=== PATIENT | female | born 1975 ===

== ENCOUNTER → 2024-02-15 11:27 | Outpatient (CLI) | payer OTHER ==
[2024-02-15 12:38] LABS: HEMATOCRIT 39.6 % (36.0-45.00); HEMOGLOBIN 13.5 g/dL (12.0-15.00); MEAN CELL VOLUME 94.7 fL (80.00-100.00); MEAN CORPUSCULAR HEMOGLOBIN 32.3 pg (27.00-32.0); MEAN CORPUSCULAR HGB CONC 34.1 g/dl (32.0-36.0); PLATELET COUNT 186 K/uL (150-450); RED BLOOD COUNT 4.18 M/uL (4.00-6.00); RED CELL DISTRIBUTION WIDTH 12.6 % (11.5-14.5)
[2024-02-15 14:42] LABS: % SATURACION 32.2 % (15-50); ALBUMIN 3.8 gm/dL (3.4-5.0); BILIRUBIN TOTAL 1.54 mg/dL (0.3-1.2); CALCIUM 8.7 mg/dL (8.5-10.1); CREATININE SERUM 0.72 mg/dL (0.55-1.02); GFR 86.82; GLOBULINA 3.2 G/DL (2.4-3.5); POTASSIUM 3.6 mEq/L (3.5-5.1)
[2024-02-15 15:09] LABS: FOLIC ACID 6.71 ng/ml (4.78-20)
[2024-02-16 08:28] LABS: MANUAL PLATELET COUNT 352
[2024-02-16 08:29] LABS: PLATELET ESTIMATE NORMAL (NORMAL)
[2024-02-17 09:07] LABS: HAPTOGLOBIN 74 mg/dL (42-296)
[2024-02-17 15:10] LABS: hgb a 96.9 % (96.4-98.8); hgb a2 2.4 % (1.8-3.2); hgb f 0.7 % (0.0-2.0); hgb s 0 % (0.0)
[2024-02-19 11:12] LABS: g6pd quant 276 (127-427); rbc 4.31 x10E6/uL (3.77-5.28)
[2024-02-19 15:10] LABS: PARIETAL CELL ANTIBODIES 1.1 Units (0.0-20.0)
== END | disposition home or self-care (01) ==
LOC: LAB 11:27
PROVIDERS: ATTEND Internal Medicine Hematology & Oncology
DX: D50.8 Other iron deficiency anemias (principal); R79.9 Abnormal finding of blood chemistry, unspecified; R74.02 Elevation of levels of lactic acid dehydrogenase [LDH]; K76.89 Other specified diseases of liver; I10 Essential (primary) hypertension; D55.0 Anemia due to glucose-6-phosphate dehydrogenase [G6PD] deficiency; J32.8 Other chronic sinusitis; D51.3 Other dietary vitamin B12 deficiency anemia; E55.9 Vitamin D deficiency, unspecified; R16.0 Hepatomegaly, not elsewhere classified